=== PATIENT | female | born 1935 | race Caucasian/White ===

== ENCOUNTER 2017-12-14 07:51 | Day surgery (SDC) | payer MEDICARE, BC ==
[2017-12-14] VITALS (8 sets, daily range): BP systolic 102–142; BP diastolic 62–95
[~2017-12-14] VITALS: Ht 167.6 cm; Wt 66.1 kg
[~2017-12-14 07:51] MED LIST: DOCU-28 PO; MULT-1085 PO; ONDA8TAB6 PO; PEGF6DIS2; PROC-8; SIMV20TA5 PO; [UNRECOGNIZED DRUG - CODE]; tylenol
[2017-12-14] MEDS ORDERED: normal saline 1000ml 1,000 ML IV PRN (08:10)
[2017-12-14] MEDS ORDERED: albumin (human) 25% 100 ML IV solution IV PRN (08:10)
[2017-12-14] MEDS ORDERED: ACET-2319 PO (08:18)
[2017-12-14] MEDS ORDERED: ACET-890 (08:18)
[2017-12-14] MEDS ORDERED: LIDOcaine 1% 30ml preserv. free vial SQ ONE (09:00)
== END 2017-12-14 10:35 | disposition home or self-care (01) ==
LOC: SSTAY O 07:51
PROVIDERS: ATTEND Radiology Diagnostic Radiology
DX: R18.8 Other ascites (principal); Z85.43 Personal history of malignant neoplasm of ovary; Z90.710 Acquired absence of both cervix and uterus; Z88.0 Allergy status to penicillin; Z80.9 Family history of malignant neoplasm, unspecified; Z82.0 Family history of epilepsy and other diseases of the nervous system; Z79.891 Long term (current) use of opiate analgesic; Z87.891 Personal history of nicotine dependence; Z72.89 Other problems related to lifestyle; Z92.21 Personal history of antineoplastic chemotherapy; Z98.890 Other specified postprocedural states; Z79.899 Other long term (current) drug therapy
CPT/HCPCS: 49083; J3490; J7030; P9047